=== PATIENT | female | born 1930 | race Caucasian/White ===

== ENCOUNTER 2017-03-10 12:07 | Emergency (ER) | payer MEDICARE, BC ==
[2017-03-10] MEDS ORDERED: MORPHINE SULFATE 5 MG/ML PFS IVP ONE (12:46)
[2017-03-10] MEDS ORDERED: PROMETHAZINE HCL 12.5 MG in 0.9 % SODIUM CHLORIDE 100ML 100 ML IVPB ONE (12:46)
[2017-03-10] MEDS ORDERED: NEOMYCIN/POLYMYXIN B SULF/HC 10ML BTL OT ONE (15:09)
--- NOTE | 2017-03-10 15:10 | Emergency Department Record ---
History of Present Illness - General Chief complaint: ENT Stated complaint: LEFT EAR PAIN Time Seen by Provider: 03/10/17 12:28 Source: Patient Mode of Arrival: Ambulatory Limitations: No limitations - History of Present Illness Initial comments: pt was attempting to get wax out of ear w q tip and developed sharp stabbing lancing pains in l ear area. complaint: Ear pain Onset/Timin -: Days(s) Severity: Severe Quality: Stabbing Consistency: Intermittent Improves with: None Context- Ear: Other - Related Data Home Medications Medication Instructions Recorded Confirmed Last Taken Allopurinol [Zyloprim] 100 mg PO DAILY 03/10/17 03/10/17 03/09/17 Omeprazole [Prilosec] 20 mg PO DAILY 03/10/17 03/10/17 03/09/17 Previous Rx's Medication Instructions Recorded Hydrocodone/Acetaminophen [Lovell 0.5 - 1 tab PO TID PRN #10 tab 03/10/17 5mg/325mg] Allergies Allergy/AdvReac Type Severity Reaction Status Date / Time No Known Drug Allergies Allergy Verified 06/09/15 23:40 Travel Screening - Travel/Exposure Within Last 30 Days Have you traveled within the last 30 days?: No - Travel/Exposure Within Last Year Have you traveled outside the [place] in the last year?: No - Additonal Travel Details Have you been exposed to anyone with a communicable illness?: No Past Medical History - SOCIAL HISTORY Smoking Status: Former smoker Alcohol Use: Rare Drug Use: None - RESPIRATORY Hx Respiratory Disorders: No - CARDIOVASCULAR Hx Cardio Disorders: Yes Hx CHF: Yes Hx Edema: Yes Hx Heart Attack: No Hx Hypertension: Yes Hx Irregular Heartbeat: Yes Hx Palpitations: Yes Comment:: high cholesterol - NEURO Hx Neuro Disorders: Yes Hx Dizziness: Yes (At night) - GI Hx GI Disorders: Yes Hx Diverticulitis: Yes Hx Hiatal Hernia: Yes Comment:: No problems with indigestion. - Hx Genitourinary Disorders: Yes - ENDOCRINE Hx Endocrine Disorders: No - MUSCULOSKELETAL Hx Musculoskeletal Disorders: Yes Hx Arthritis: Yes Hx Osteoporosis: Yes - PSYCH Hx Psych Problems: No - HEMATOLOGY/ONCOLOGY Hx Hematology/Oncology Disorders: Yes Hx Cancer: Yes (benign lumpectomy) Hx Chemotherapy: No Hx Radiation Therapy: No Hx Blood Transfusions: Yes Family Medical History Any Significant Family History?: No Hx Heart Disease: Father, Brother/Sister *Heart Comment: hx of [place]'s Course Vital Signs 03/10/17 03/10/17 12:19 13:47 Temperature 97.8 F Pulse Rate 72 Pulse Rate [ 72 Pulse Ox Probe] Respiratory 16 16 Rate Blood Pressure 170/94 Blood Pressure 167/93 [Left Arm] Pulse Ox 95 95 - Reevaluation(s) Reevaluation #1: 03/10/17 15:15 pain is better with norco. ct showed possible perf tm. canal occluded w cerumen and exquisitely tender. pt unable to tolerate complete removal but partially removed. Disposition Disposition: Discharge Clinical Impression: Trigeminal neuralgia of left side of face Tympanic membrane perforation Qualifiers: Laterality: left Qualified Code(s): H72.92 - Unspecified perforation of tympanic membrane, left ear Disposition: Home, Self-Care Condition: (1) Good Instructions: Ruptured Eardrum (ED), Trigeminal Neuralgia (ED) Additional Instructions: follow up with family doctor this week. cortisporin drops 1 drop in left ear 4 times a day. you might need additional meds from family doctor if pain continues. return sooner if worse. Prescriptions: Hydrocodone/Acetaminophen [Lovell 5mg/325mg] 0.5 - 1 tab PO TID PRN #10 tab PRN Reason: Pain - General Forms: Patient Portal Access Quality - Quality Measures Quality Measures: N/A - Blood Pressure Screening Does Patient Have Any of the Following: No Blood Pressure Classification: Hypertensive Reading Systolic Measurement: 170 Diastolic Measurement: 94 Screening for High Blood Pressure: < First Hypertensive BP, F/U Documented > [ G8950] First Hypertensive Follow-up Interventions: Follow-up with rescreen GT 1 day and LT 4 weeks.
--- NOTE | 2017-03-11 09:16 | CT SCAN REPORT ---
EXAM: CT SCAN OF THE HEAD HISTORY: PATIENT HAS LEFT EAR PAIN AND POSSIBLE PAIN POST INSERTING Q-TIP TOO FAR. TECHNIQUE: Serial axial CT scan of the head was performed at 2.5 mm intervals from the base of the skull to the apex without the use of intravenous contrast. Sagittal and coronal reconstructions are provided. No comparison CT's are available. FINDINGS: Moderate to increased generalized parenchymal volume loss is noted. Moderate periventricular and subcortical white matter chronic small vessel ischemic changes are identified. There is no CT evidence of intra or extraaxial fluid collection to suggest bleeding. There is no mass or mass effect. Bone windows demonstrate no CT evidence of a fracture or dislocation of the skull. IMPRESSION: GENERALIZED PARENCHYMAL VOLUME LOSS AND CHRONIC SMALL VESSEL ISCHEMIC CHANGES ARE IDENTIFIED WITHOUT CT EVIDENCE OF AN ACUTE INTRACRANIAL PROCESS. JOB NUMBER: [id number] [facility]
--- NOTE | 2017-03-11 09:32 | CT SCAN REPORT ---
EXAM: CT SCAN OF THE TEMPORAL BONES HISTORY: PATIENT HAS PAIN IN THE LEFT EAR FROM INSERTING Q-TIP TOO FAR. TECHNIQUE: Serial axial CT scan of the temporal bones was performed at 0.62 mm intervals from the base of the skull to the level of the third ventricle without the use of intravenous contrast. Sagittal and coronal reconstructions are provided. No comparison CT's are available. FINDINGS: Bone windows demonstrate no CT evidence of a fracture or dislocation of the visualized osseous structures of the base of the skull or temporal bones. The right external auditory canal appears partly occluded with soft tissue which is likely the result of cerumen. The right tympanic membrane appears unremarkable. The right middle ear is unremarkable. Ossicular chain on the right is unremarkable. The right mastoid air cells are well pneumatized and well aerated. The right cochlea, semicircular canals and internal auditory canal are unremarkable. The left mastoid air cells are well pneumatized and well aerated. The left cochlea, internal auditory canals and semicircular canals are unremarkable. The left ossicular chain is unremarkable. No significant fluid is noted within the left middle ear cavity. There is an irregular contour to the left tympanic membrane. The perforation cannot be excluded. No radiopaque foreign bodies are identified. The left external auditory canal appears unremarkable. Of note is that the patient has small pockets of air within the right pterygomaxillary soft tissue as well as in the region of the right cavernous sinus. The etiology is uncertain. There is subcutaneous soft tissue also identified adjacent to the right lateral periorbital musculature. Clinical correlation for abrasions are recommended. The visualized globe and orbits are unremarkable. Moderate nasal septal deviation to the left is noted. There is a randee bullosa of the bilateral middle turbinates, right greater than left. Otherwise the visualized paranasal sinuses demonstrate normal pneumatization. IMPRESSION: 1. NO CT EVIDENCE OF ACUTE FRACTURE OR DISLOCATION OF THE VISUALIZED TEMPORAL BONES OR FACIAL BONES. 2. SOFT TISSUE DENSITY WITHIN THE RIGHT EXTERNAL AUDITORY CANAL IS LIKELY RELATED TO CERUMEN. 3. LEFT TYMPANIC MEMBRANE DEMONSTRATES IRREGULAR CONTOUR. A PERFORATION CANNOT BE EXCLUDED. DIRECT VISUALIZATION IS SUGGESTED FOR FURTHER EVALUATION. NO OBVIOUS FLUID WITHIN THE LEFT MIDDLE EAR OR RADIOPAQUE FOREIGN BODIES ARE IDENTIFIED. 4. SMALL POCKETS OF AIR ARE IDENTIFIED WITHIN THE SOFT TISSUE OF THE RIGHT PTERYGOMAXILLARY REGION. THE ETIOLOGY IS UNCERTAIN. CLINICAL CORRELATION IS RECOMMENDED. JOB NUMBER: [id number] [facility]
--- NOTE | 2017-03-12 16:07 | Emergency Department Record ---
History of Present Illness - General Chief complaint: ENT Stated complaint: LEFT EAR PAIN Time Seen by Provider: 03/10/17 12:28 Source: Patient Mode of Arrival: Ambulatory Limitations: No limitations - History of Present Illness MD complaint: Ear pain Onset/Timin -: Days(s) Severity: Severe Quality: Stabbing Consistency: Intermittent Improves with: None Context- Ear: Other - Related Data Home Medications Medication Instructions Recorded Confirmed Last Taken Allopurinol [Zyloprim] 100 mg PO DAILY 03/10/17 03/10/17 03/09/17 Omeprazole [Prilosec] 20 mg PO DAILY 03/10/17 03/10/17 03/09/17 Previous Rx's Medication Instructions Recorded Hydrocodone/Acetaminophen [[place] 0.5 - 1 tab PO TID PRN #10 tab 03/10/17 5mg/325mg] Allergies Allergy/AdvReac Type Severity Reaction Status Date / Time No Known Drug Allergies Allergy Verified 06/09/15 23:40 Travel Screening - Travel/Exposure Within Last 30 Days Have you traveled within the last 30 days?: No - Travel/Exposure Within Last Year Have you traveled outside the [place] in the last year?: No - Additonal Travel Details Have you been exposed to anyone with a communicable illness?: No Past Medical History - SOCIAL HISTORY Smoking Status: Former smoker Alcohol Use: Rare Drug Use: None - RESPIRATORY Hx Respiratory Disorders: No - CARDIOVASCULAR Hx Cardio Disorders: Yes Hx CHF: Yes Hx Edema: Yes Hx Heart Attack: No Hx Hypertension: Yes Hx Irregular Heartbeat: Yes Hx Palpitations: Yes Comment:: high cholesterol - NEURO Hx Neuro Disorders: Yes Hx Dizziness: Yes (At night) - GI Hx GI Disorders: Yes Hx Diverticulitis: Yes Hx Hiatal Hernia: Yes Comment:: No problems with indigestion. - Hx Genitourinary Disorders: Yes - ENDOCRINE Hx Endocrine Disorders: No - MUSCULOSKELETAL Hx Musculoskeletal Disorders: Yes Hx Arthritis: Yes Hx Osteoporosis: Yes - PSYCH Hx Psych Problems: No - HEMATOLOGY/ONCOLOGY Hx Hematology/Oncology Disorders: Yes Hx Cancer: Yes (benign lumpectomy) Hx Chemotherapy: No Hx Radiation Therapy: No Hx Blood Transfusions: Yes Family Medical History Any Significant Family History?: No Hx Heart Disease: Father, Brother/Sister *Heart Comment: hx of [place]'s Physical Exam - General General Appearance: Alert, Oriented x3, Cooperative, Mild distress Limitations: No limitations - Head Head exam: Normal inspection Head exam detail: Other (tenderness preauricular) - Eye Eye exam: Normal appearance, PERRL, EOMI Pupils: Normal accommodation - ENT ENT exam: Normal exam, Mucous membranes moist, Normal external ear exam, Normal orophraynx, Other (cerumen impacted. partially removed, tm perf. canal is exquisitely tender) Ear exam: Normal external inspection. negative: External canal tenderness Nasal Exam: Normal inspection. negative: Discharge, Sinus tenderness Mouth exam: Normal external inspection, Tongue normal Teeth exam: Normal inspection. negative: Dental caries Throat exam: Normal inspection. negative: Tonsillar erythema, Tonsillar exudate - Neck Neck exam: Normal inspection, Full ROM. negative: Tenderness - Respiratory Respiratory exam: Normal lung sounds bilaterally. negative: Respiratory distress - Cardiovascular Cardiovascular Exam: Regular rate, Normal rhythm, Normal heart sounds - GI/Abdominal GI/Abdominal exam: Soft, Normal bowel sounds. negative: Tenderness - Rectal Rectal exam: Deferred - exam: Deferred - Extremities Extremities exam: Normal inspection, Full ROM, Normal capillary refill. negative: Tenderness - Back Back exam: Reports: Normal inspection, Full ROM. Denies: Muscle spasm, Rash noted, Tenderness - Neurological Neurological exam: Alert, CN II-XII intact, Normal gait, Oriented X3 - Psychiatric Psychiatric exam: Normal affect, Normal mood - Skin Skin exam: Dry, Intact, Normal color, Warm Course Vital Signs 03/10/17 03/10/17 03/10/17 12:19 13:47 15:43 Temperature 97.8 F Pulse Rate 72 66 Pulse Rate [ 72 Pulse Ox Probe] Respiratory 16 16 18 Rate Blood Pressure 170/94 174/88 Blood Pressure 167/93 [Left Arm] Pulse Ox 95 95 97 Disposition Clinical Impression: Trigeminal neuralgia of left side of face Tympanic membrane perforation Qualifiers: Laterality: left Qualified Code(s): H72.92 - Unspecified perforation of tympanic membrane, left ear Disposition: Home, Self-Care Condition: (1) Good Instructions: Ruptured Eardrum (ED), Trigeminal Neuralgia (ED) Additional Instructions: follow up with family doctor this week. cortisporin drops 1 drop in left ear 4 times a day. you might need additional meds from family doctor if pain continues. return sooner if worse. Prescriptions: Hydrocodone/Acetaminophen [Hilmar 5mg/325mg] 0.5 - 1 tab PO TID PRN #10 tab PRN Reason: Pain - General Forms: Patient Portal Access Quality - Quality Measures Quality Measures: N/A - Blood Pressure Screening Does Patient Have Any of the Following: No Blood Pressure Classification: Pre-Hypertensive BP Reading Systolic Measurement: 174 Diastolic Measurement: 88 Screening for High Blood Pressure: < Pre-Hypertensive BP, F/U Documented > [ G8950] Pre-Hypertensive Follow-up Interventions: Referral to alternative/primary care provider.
== END 2017-03-10 15:45 | disposition home or self-care (01) ==
LOC: ER 12:07
DX: S09.22XA Traumatic rupture of left ear drum, initial encounter (principal); G50.0 Trigeminal neuralgia; H61.22 Impacted cerumen, left ear; W22.8XXA Striking against or struck by other objects, initial encounter; Y93.E8 Activity, other personal hygiene; I10 Essential (primary) hypertension; I50.9 Heart failure, unspecified; I25.2 Old myocardial infarction
CPT/HCPCS: 70450; 70480; 96365; 96375; 99284; J2550

== ENCOUNTER 2017-05-02 10:30 | Emergency (ER) | payer MEDICARE, BC ==
[2017-05-02] MEDS ORDERED: SODIUM CHLORIDE 0.9% 500 ML IV ONE (10:34)
[2017-05-02] MEDS ORDERED: MECLIZINE 25 MG TABLET PO ONE (10:34)
--- NOTE | 2017-05-02 10:39 | Emergency Department Record ---
History of Present Illness - General Chief Complaint: Dizziness Stated Complaint: DIZZINESS Time Seen by Provider: 05/02/17 10:33 Source: Patient, EMS Mode of Arrival: Stretcher Limitations: Other (Memory) - History of Present Illness Initial Comments: 86 yo female presents by EMS for dizziness. She states this started this morning when she awoke. She denies any recent falls or headache. No vomiting. She states the room seems to spin with head movements. She states she has had similar symptoms in the past. She does live alone. She seems to have some memory issues with recalling some recent and prior medical information. PCP is Dr Middleton in [place]. She has a daughter who is on her way to the ED to be with her mother. Per EMS she was found in a chair and stood to get on the EMS cot without difficulty. MD Complaint: Dizziness -: Hour(s) Timing: Awoke with symptoms Description: "Room spinning", Sense of movement History of Same: Yes History of Trauma: No Severity: Moderate Improves With: Remaining still Worsens With: Movement Associated Symptoms: Denies other symptoms - [place] Coma Scale Eye Response: (4) Open spontaneously Motor Response: (6) Obeys commands Verbal Response: (5) Oriented [place] Total: 15 - Related Data Previous Rx's Medication Instructions Recorded Meclizine HCl [Antivert] 25 mg PO Q8H #20 tablet 05/02/17 Sulfamethoxazole/Trimethoprim 1 each PO BID #14 tablet 05/02/17 [Bactrim Ds Tablet] Allergies Allergy/AdvReac Type Severity Reaction Status Date / Time No Known Drug Allergies Allergy Verified 05/02/17 10:40 Review of Systems Constitutional: Denies: Chills, Fever, Malaise, Weakness Eyes: Denies: Eye discharge, Eye pain, Photophobia, Vision change ENT: Denies: Congestion, Throat pain Respiratory: Denies: Cough, Dyspnea, Hemoptysis, Stridor, Wheezes Cardiovascular: Denies: Chest pain, Palpitations, Syncope Endocrine: Denies: Fatigue, Polydipsia, Polyuria Gastrointestinal: Denies: Abdominal pain, Diarrhea, Nausea, Vomiting Genitourinary: Denies: Dysuria, Urgency Musculoskeletal: Denies: Arthralgia, Back pain, Joint swelling, Myalgia Skin: Denies: Bruising, Change in color, Rash Neurological: Reports: Vertigo. Denies: Headache Psychiatric: Denies: Anxiety Hematological/Lymphatic: Denies: Blood Clots, Easy bleeding, Easy bruising, Swollen glands Past Medical History - SOCIAL HISTORY Smoking Status: Former smoker Drug Use: None - RESPIRATORY Hx Respiratory Disorders: No - CARDIOVASCULAR Hx Cardio Disorders: Yes Hx CHF: Yes Hx Edema: Yes Hx Heart Attack: No Hx Hypertension: Yes Hx Irregular Heartbeat: Yes Hx Palpitations: Yes Comment:: high cholesterol - NEURO Hx Neuro Disorders: Yes Hx Dizziness: Yes (At night) - GI Hx GI Disorders: Yes Hx Diverticulitis: Yes Hx Hiatal Hernia: Yes Comment:: No problems with indigestion. - Hx Genitourinary Disorders: Yes - ENDOCRINE Hx Endocrine Disorders: No - MUSCULOSKELETAL Hx Musculoskeletal Disorders: Yes Hx Arthritis: Yes Hx Osteoporosis: Yes - PSYCH Hx Psych Problems: No - HEMATOLOGY/ONCOLOGY Hx Hematology/Oncology Disorders: Yes Hx Cancer: Yes (benign lumpectomy) Hx Chemotherapy: No Hx Radiation Therapy: No Hx Blood Transfusions: Yes Family Medical History Hx Heart Disease: Father, Brother/Sister *Heart Comment: hx of CT's Physical Exam - General General Appearance: Alert, Oriented x3, Cooperative, No acute distress Limitations: No limitations - Head Head exam: Atraumatic, Normocephalic, Normal inspection - Eye Eye exam: Normal appearance, PERRL, EOMI. negative: Conjunctival injection, Nystagmus, Periorbital swelling, Scleral icterus - ENT ENT exam: Normal exam, Mucous membranes moist Ear exam: Normal external inspection Nasal Exam: Normal inspection Mouth exam: Normal external inspection Teeth exam: Normal inspection Throat exam: Normal inspection - Neck Neck exam: Normal inspection, Full ROM. negative: Tenderness - Respiratory Respiratory exam: Normal lung sounds bilaterally. negative: Respiratory distress - Cardiovascular Cardiovascular Exam: Regular rate, Normal rhythm, Normal heart sounds Peripheral Pulses: 2+: Radial (R), Radial (L) - GI/Abdominal GI/Abdominal exam: Soft. negative: Tenderness - Rectal Rectal exam: Deferred - exam: Deferred - Extremities Extremities exam: Normal inspection, Full ROM, Normal capillary refill. negative: Tenderness - Back Back exam: Reports: Normal inspection, Full ROM. 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 negative: Altered , Motor sensory deficit - Psychiatric Psychiatric exam: Normal affect, Normal mood. negative: Agitated, Anxious - Skin Skin exam: Dry, Intact, Normal color, Warm Course - Reevaluation(s) Reevaluation #1: EKG Sinus with ventricular bigeminy rate of 84, intervals QT 557, RBBB, axis left, no old EKG on file in EMR. 05/02/17 11:01 05/02/17 11:24 No acute changes on the CBC,CMP,Magnesium, Old EKG found in paper file. 03/06/13 RBBB with PVC's The daughter is in the ED now She reports the patient has a long history of very frequent PVC's She reports the patient is at her baseline at this time and that she does have a history of dizziness in the past. The current monitor demonstrated NSR with frequent PVCs not currently bigemny. 05/02/17 11:57 The HCT was reviewed No acute changes from the prior. No acute hemorrhage or stroke. The UA was reviewed and is consistent with infection with LE, WBC and Bacteria. N is -. 05/02/17 12:03 I discussed the results with the patient and daughter I gave the option of OBV in the hospital vs DC home with the daughter. The daughter is very reliable and will take her home on antibiotics and antivert We discussed returning to the ED at anytime if there are concerns with improvement or the symptoms Medical Decision Making - Lab Data Result diagrams: 05/02/17 10:40 05/02/17 10:40 Disposition Disposition: Discharge Clinical Impression: Dizziness Urinary tract infection Qualifiers: Urinary tract infection type: acute cystitis Hematuria presence: without hematuria Qualified Code(s): N30.00 - Acute cystitis without hematuria Disposition: Home, Self-Care Condition: (1) Good Instructions: Urinary Tract Infection in Women (ED), Dizziness (ED) Additional Instructions: Call your doctor today for close follow up Return anytime for a re-evaluation of the symptoms or sooner if worse, new concerns Take the Antivert every 8 hours for dizziness and the Bactrim every 12 hours Prescriptions: Meclizine HCl [Antivert] 25 mg PO Q8H #20 tablet Sulfamethoxazole/Trimethoprim [Bactrim Ds Tablet] 1 each PO BID #14 tablet Forms: Patient Portal Access Time of Disposition: 12:06 Quality - Quality Measures Quality Measures: N/A - Blood Pressure Screening Does Patient Have Any of the Following: No Blood Pressure Classification: Pre-Hypertensive BP Reading Systolic Measurement: 161 Diastolic Measurement: 80 Screening for High Blood Pressure: < Pre-Hypertensive BP, F/U Documented > [ G8950] Pre-Hypertensive Follow-up Interventions: Referral to alternative/primary care provider.
[2017-05-02 10:48] LABS: HEMATOCRIT 42.6 % (35.0-47.0); HEMOGLOBIN 14.3 gm/dl (11.6-16.0); MEAN CELL VOLUME 93.8 fl (81-97); MEAN CORPUSCULAR HEMOGLOBIN 31.5 pg (27-33); MEAN CORPUSCULAR HGB CONC 33.6 g/dl (32-36); MEAN PLATELET VOLUME 9.5 fl (7.4-10.4); PLATELET COUNT 255 K/uL (130-400); RED BLOOD COUNT 4.54 M/uL (3.80-5.40); RED CELL DISTRIBUTION WIDTH 14.2 % (11.5-14.5); WHITE BLOOD COUNT W/O DIFF 9.7 K/uL (4.2-12.2)
[2017-05-02 10:55] LABS: PLATELET ESTIMATE NORMAL (NORMAL)
[2017-05-02 11:04] LABS: ALB/GLOB RATIO 1.4 (1.1-1.8); ALBUMIN 4.1 g/dL (4.0-5.0); ALKALINE PHOSPHATASE 70 U/L (35-104); ALT/SGPT 8 U/L (<33); AST/SGOT 16 U/L (10.0-35.0); BLOOD UREA NITROGEN 20 mg/dL (8-23); CREATININE 0.9 mg/dL (0.5-0.9); EST GLOMERULAR FILTRATION RATE > 60 mL/min; GLUCOSE,RANDOM 101 mg/dL (74-109); TOTAL PROTEIN 7.1 g/dL (6.6-8.7)
[2017-05-02] MEDS ORDERED: METOCLOPRAMIDE HCL 10 MG/2 ML VIAL IVP ONE (11:23)
[2017-05-02 11:43] LABS: URINE APPEARANCE CLEAR; URINE BILIRUBIN NEGATIVE (NEGATIVE); URINE BLOOD NEGATIVE (NEGATIVE); URINE COLOR YELLOW; URINE GLUCOSE (UA) NEGATIVE (NEGATIVE); URINE KETONE NEGATIVE (NEGATIVE); URINE LEUKOCYTE ESTERASE LARGE (NEGATIVE); URINE NITRITE NEGATIVE (NEGATIVE); URINE PROTEIN NEGATIVE (NEGATIVE); URINE UROBILINOGEN 0.2 E.U./dL (0.20 - 1.00)
[2017-05-02 11:50] LABS: URINE BACTERIA FEW; URINE RBC NONE SEEN (NONE SEEN)
[2017-05-02] MEDS ORDERED: TMP/SMZ 160MG/800MG TAB PO ONE (11:52)
--- NOTE | 2017-05-03 10:34 | CT SCAN REPORT ---
EXAM: CT OF THE HEAD WITHOUT CONTRAST HISTORY: ACUTE EPISODE OF VERTIGO/DIZZINESS. SIMILAR EPISODES INTERMITTENTLY FOR THE PAST SIX WEEKS. TECHNIQUE: Routine noncontrast CT examination of the head was obtained. Comparison: CT of the head without contrast dated 03/10/17. FINDINGS: Moderate dilatation of the subarachnoid spaces is redemonstrated. The ventricles are not grossly enlarged. Moderate periventricular and subcortical white matter lucencies are again noted in each cerebral hemisphere, the pattern of which is stable. These are nonspecific, but likely areas of chronic small vessel ischemia. No new area of abnormally increased or decreased attenuation is noted throughout the brain substance. No new abnormal extraaxial fluid collection is seen. The visualized paranasal sinuses and left mastoid air cells are clear. Opacification of a few inferior right mastoid air cells redemonstrated consistent with retained secretions or mild chronic inflammation. Post cataract surgery changes bilaterally. The orbits are otherwise unremarkable. IMPRESSION: 1. NO CT EVIDENCE OF ACUTE MAJOR VESSEL INFARCT, INTRACRANIAL HEMORRHAGE, NOR MASS WITHOUT SIGNIFICANT CHANGE IN APPEARANCE OF THE BRAIN SINCE 03/10/17. 2. GENERALIZED ATROPHY. MODERATE WHITE MATTER LUCENCIES SCATTERED IN EACH CEREBRAL HEMISPHERE. THESE ARE NONSPECIFIC, BUT LIKELY AREAS OF CHRONIC SMALL VESSEL ISCHEMIA. 3. OPACIFICATION OF SEVERAL INFERIOR RIGHT MASTOID AIR CELLS REDEMONSTRATED WITH ADJACENT SCLEROSIS CONSISTENT WITH RETAINED SECRETIONS OR MILD CHRONIC INFLAMMATION. JOB NUMBER: [id number] [facility]
== END 2017-05-02 12:26 | disposition home or self-care (01) ==
LOC: ER 10:30
DX: R42 Dizziness and giddiness (principal); N30.00 Acute cystitis without hematuria; I10 Essential (primary) hypertension; I25.2 Old myocardial infarction; I50.9 Heart failure, unspecified; Z87.891 Personal history of nicotine dependence
CPT/HCPCS: 99284 ×2; 96374; 96361; 83735; 80053; 81001; 85027; 70450; 93005; 93010; J3490; J2765

== ENCOUNTER 2017-05-03 14:39 | Observation (INO) | payer MEDICARE, BC ==
[2017-05-03] MEDS ORDERED: METOCLOPRAMIDE HCL 10 MG/2 ML VIAL IVP ONE (15:03)
--- NOTE | 2017-05-03 16:01 | Emergency Department Record ---
History of Present Illness - General Chief Complaint: Dizziness Stated Complaint: DIZZINESS Time Seen by Provider: 05/03/17 14:53 Source: Patient, Family, EMS Mode of Arrival: Ambulatory Limitations: No limitations - History of Present Illness Initial Comments: pt was here yesterday with vertigo and was told to come back if not better. she is not better and states she is having a hard time walking because she feels like she is going to fall. she had a neg head ct yesterday and was dxd with a uti. she has had problems w vertigo in the past. she was offered admission yesterday but refused. she was told she could come back if she changed her mind. she comes back today via ems MD Complaint: Dizziness, Difficulty walking Onset/Timin -: Days(s) Timing: Gradual onset Description: Difficulty walking History of Same: Yes History of Trauma: No Improves With: Nothing Worsens With: Nothing Associated Symptoms: Denies other symptoms - [place] Coma Scale Eye Response: (4) Open spontaneously Motor Response: (6) Obeys commands Verbal Response: (5) Oriented Vish Total: 15 - Symptoms of Stroke Symptoms of stroke: Unsteady When Walking, Vertigo - Related Data Previous Rx's Medication Instructions Recorded Meclizine HCl [Antivert] 25 mg PO Q8H #20 tablet 05/02/17 Sulfamethoxazole/Trimethoprim 1 each PO BID #14 tablet 05/02/17 [Bactrim Ds Tablet] Allergies Allergy/AdvReac Type Severity Reaction Status Date / Time No Known Drug Allergies Allergy Verified 05/02/17 10:40 Travel Screening - Travel/Exposure Within Last 30 Days Have you traveled within the last 30 days?: No Review of Systems Reviewed: No additional complaints except as noted below Constitutional: Reports: As per HPI. Denies: Chills, Fever, Malaise, Night sweats, Weakness, Weight change Eyes: Reports: As per HPI. Denies: Eye discharge, Eye pain, Photophobia, Vision change ENT: Reports: As per HPI. Denies: Congestion, Dental pain, Ear pain, Epistaxis , Hearing loss, Throat pain Respiratory: Reports: As per HPI. Denies: Cough, Dyspnea, Hemoptysis, Stridor, Wheezes Cardiovascular: Reports: As per HPI. Denies: Arrhythmia, Chest pain, Dyspnea on exertion, Edema, Murmurs, Orthopnea, Palpitations, Paroxysmal nocturnal dyspnea, Rheumatic Fever, Syncope Endocrine: Reports: As per HPI. Denies: Fatigue, Heat or cold intolerance, Polydipsia, Polyuria Gastrointestinal: Reports: As per HPI. Denies: Abdominal pain, Constipation, Diarrhea, Hematemesis, Hematochezia, Melena, Nausea, Vomiting Genitourinary: Reports: As per HPI. Denies: Abnormal menses, Discharge, Dyspareunia, Dysuria, Frequency, Hematuria, Incontinence, Retention, Urgency Musculoskeletal: Reports: As per HPI. Denies: Arthralgia, Back pain, Gout, Joint swelling, Myalgia, Neck pain Skin: Reports: As per HPI. Denies: Bruising, Change in color, Change in hair/ nails, Lesions, Pruritus, Rash Neurological: Reports: As per HPI. Denies: Abnormal gait, Confusion, Headache, Numbness, Paresthesias, Seizure, Tingling, Tremors, Vertigo, Weakness Psychiatric: Reports: As per HPI. Denies: Anxiety, Auditory hallucinations, Depression, Homicidal thoughts, Suicidal thoughts, Visual hallucinations Hematological/Lymphatic: Reports: As per HPI. Denies: Anemia, Blood Clots, Easy bleeding, Easy bruising, Swollen glands Past Medical History - SOCIAL HISTORY Smoking Status: Former smoker Alcohol Use: None Drug Use: None - RESPIRATORY Hx Respiratory Disorders: No - CARDIOVASCULAR Hx Cardio Disorders: Yes Hx CHF: Yes Hx Edema: Yes Hx Heart Attack: No Hx Hypertension: Yes Hx Irregular Heartbeat: Yes Hx Palpitations: Yes Comment:: high cholesterol - NEURO Hx Neuro Disorders: Yes Hx Dizziness: Yes (At night) - GI Hx GI Disorders: Yes Hx Diverticulitis: Yes Hx Hiatal Hernia: Yes Comment:: No problems with indigestion. - Hx Genitourinary Disorders: Yes - ENDOCRINE Hx Endocrine Disorders: No - MUSCULOSKELETAL Hx Musculoskeletal Disorders: Yes Hx Arthritis: Yes Hx Osteoporosis: Yes - PSYCH Hx Psych Problems: No - HEMATOLOGY/ONCOLOGY Hx Hematology/Oncology Disorders: Yes Hx Cancer: Yes (benign lumpectomy) Hx Chemotherapy: No Hx Radiation Therapy: No Hx Blood Transfusions: Yes Family Medical History Any Significant Family History?: Yes Hx Heart Disease: Father, Brother/Sister *Heart Comment: hx of VT's Physical Exam - General General Appearance: Alert, Oriented x3, Cooperative, Mild distress - Head Head exam: Normal inspection - Eye Eye exam: Normal appearance, PERRL, EOMI Pupils: Normal accommodation - ENT ENT exam: Normal exam, Mucous membranes moist, Normal external ear exam, Normal orophraynx, TM's normal bilaterally, Other (tms partially occluded with cerumen) Ear exam: Normal external inspection. negative: External canal tenderness Nasal Exam: Normal inspection. negative: Discharge, Sinus tenderness Mouth exam: Normal external inspection, Tongue normal Teeth exam: Normal inspection. negative: Dental caries Throat exam: Normal inspection. negative: Tonsillar erythema, Tonsillar exudate - Neck Neck exam: Normal inspection, Full ROM. negative: Tenderness - Respiratory Respiratory exam: Normal lung sounds bilaterally. negative: Respiratory distress - Cardiovascular Cardiovascular Exam: Regular rate, Normal rhythm, Normal heart sounds - GI/Abdominal GI/Abdominal exam: Soft, Normal bowel sounds. negative: Tenderness - Rectal Rectal exam: Deferred - exam: Deferred - Extremities Extremities exam: Normal inspection, Full ROM, Normal capillary refill. negative: Tenderness - Back Back exam: Reports: Normal inspection, Full ROM. Denies: Muscle spasm, Rash noted, Tenderness - Neurological Neurological exam: Alert, Normal gait, Oriented X3, Reflexes normal - Psychiatric Psychiatric exam: Normal affect, Normal mood - Skin Skin exam: Dry, Intact, Normal color, Warm Course Vital Signs 05/03/17 14:42 Temperature 97.8 F Pulse Rate 70 Respiratory 20 Rate Blood Pressure 160/78 Pulse Ox 94 L - Reevaluation(s) Reevaluation #1: 05/03/17 16:02 pt and daughter state they want admission Disposition Disposition: Admit Clinical Impression: Vertigo Disposition: Still a Patient at [facility] Decision to Admit: Admit from ER Decision to Admit Date: 05/03/17 Decision to Admit Time: 17:03 Forms: Patient Portal Access Quality - Quality Measures Quality Measures: N/A - Blood Pressure Screening Does Patient Have Any of the Following: No Blood Pressure Classification: Hypertensive Reading Systolic Measurement: 160 Diastolic Measurement: 78 Screening for High Blood Pressure: < First Hypertensive BP, F/U Documented > [ [id number]] First Hypertensive Follow-up Interventions: Follow-up with rescreen GT 1 day and LT 4 weeks.
[2017-05-03] MEDS ORDERED: MECLIZINE 25 MG TABLET PO ONE ×2 (17:06→20:30)
[2017-05-03] MEDS ORDERED: ACETAMINOPHEN 500 MG TABLET PO PRN (18:01)
[2017-05-03] MEDS ORDERED: MECLIZINE 25 MG TABLET PO PRN ×2 (18:01→20:31)
[2017-05-03] MEDS: TMP/SMZ 160MG/800MG TAB PO SCH (21:07)
[2017-05-04] MEDS ORDERED: PANTOPRAZOLE SODIUM 40 MG TABLET PO SCH (07:00)
[2017-05-04] MEDS ORDERED: CARBAMIDE PEROXIDE 15ML BTL OT ONE (07:36)
[2017-05-04] MEDS: TMP/SMZ 160MG/800MG TAB PO SCH (09:58)
[2017-05-04] MEDS ORDERED: SIMVASTATIN 20 MG TABLET PO SCH (10:00)
[2017-05-04] MEDS ORDERED: SERTRALINE HCL 50 MG TABLET PO SCH (10:00)
--- NOTE | 2017-05-04 12:11 | Discharge Note ---
VTE H&P Assessment - Risk for VTE Risk for VTE: No Risk Level: Very Low Risk Assessment Date: 05/04/17 Risk Assessment Time: 12:11 VTE Orders Placed or Will Be Placed: No VTE Reason for No Prophylaxis: Not Indicated Discharge Medications - Discharge Medications Prescriptions: Meclizine HCl [Antivert] 25 mg PO Q8H #20 tablet Home Medications: Ambulatory Orders Sertraline HCl 100 mg PO DAILY 06/09/15 [Last Taken 03/09/17] Simvastatin 40 mg PO DAILY 06/09/15 [Last Taken 03/09/17] Omeprazole [Prilosec] 40 mg PO DAILY 03/10/17 [Last Taken 03/09/17] Sulfamethoxazole/Trimethoprim [Bactrim Ds Tablet] 1 each PO BID #14 tablet 05/02 [Last Taken Unknown] Meclizine HCl [Antivert] 25 mg PO Q8H #20 tablet 05/04/17 [Last Taken Unknown] Discharge Note - Date Date of Discharge Note: 05/04/17 Disposition: Home, Self-Care Condition: (1) Good Instructions: Benign Paroxysmal Positional Vertigo (DC) Additional Instructions: follow up with DSr. Donahue in 5-7 days. Forms: Patient Portal Access Activity at Discharge: Increase Activity as Tolerated Diet at Discharge: Low Salt Diet
--- NOTE | 2017-05-05 12:51 | Discharge Summary ---
DATE OF DISCHARGE: 05/04/2017, 12:12 p.m. DISCHARGE DIAGNOSES: 1. Benign postural vertigo. 2. Cerumen impaction of both ears. 3. Urinary tract infection. ATTENDING PHYSICIAN: Deshaun Arizmendi D.O. REASON FOR HOSPITALIZATION: Two trips to the emergency department for vertigo, the 2nd trip the doctor felt it was necessary to keep her because she was having too much vertigo, for further evaluation and treatment with Antevert. She was evaluated initially by Dr. Hdz. CT of the head was negative. Labs were negative. She was initially evaluated by Dr. Lujan, and she felt uncomfortable sending her home. SIGNIFICANT FINDINGS FROM EXAMINATION: CT of the head negative. Labs were negative. She does show signs of urinary tract infection of the urine. Cultures are pending. She was started on Bactrim DS b.i.d. THERAPY PROVIDED: Antevert 25 mg every 8 hours. She is doing better. She also had her ears flushed out because she had cerumen impacted in both ears. There was concern it might be pressing on the eardrum, causing vertigo symptoms. The wax was flushed out with water after Debrox, and she said the spinning was worse while the flushing was happening, but I explained to her that happens with flushing water through the ears. She currently is doing well, and she is only having a small amount of vertigo when she moves her head from one to the other. I also explained to her it would be much worse after she sleeps for a while, and she is aware that it will come and go for at least a week to 6 weeks. I recommend she follow up with Dr. Donahue for further evaluation, and maybe if things do not get better with the medication, physical therapy to do maneuvers to try to help her benign postural vertigo to go away. HOSPITAL COURSE: Improving. She is Observation. CONDITION AT DISCHARGE: Improved. DISCHARGE INSTRUCTIONS: Follow up with Dr. Donahue in 5-7 days. Take the Antevert 25 mg every 8 hours p.r.n., Bactrim DS b.i.d., and return to the emergency department if much worse. CC: Dr. Donahue, in [facility]
--- NOTE | 2017-05-05 13:04 | History and Physical Report ---
DATE OF ADMISSION: 05/04/2017 CHIEF COMPLAINT: Vertigo. HISTORY OF THE CHIEF COMPLAINT: This 86-year-old female presented to the Emergency Department twice, initially seen by Dr. Hdz on 05/02/2017, diagnosed with benign postural vertigo. Patient states that the spinning started the morning of 05/02/2017. When I talked to her, she said she had a little bit ongoing for the last week. She denies falls or headaches. No vomiting. She states the room is spinning when she moves her head. She has had similar problems in the past. She lives alone. She has some memory issues recalling some recent medical information. Her primary care physician is Dr. Donahue in [place]. She has a daughter who lives near her. EMS was called and she was transported to the hospital. She was evaluated and discharged with Antivert 12.5 mg 3 times a day. She came back by ambulance the next day and saw Dr. Lujan. She was concerned the vertigo was more severe. She put her in the hospital for further observation and treatment. Actually, it looks like Dr. Hdz gave her [address] Lujan prescribed in the hospital 12.5 mg 3 times a day. CAT scan of the head in the Emergency Department was negative. LABORATORY: Unremarkable. No labs were drawn by Dr. Lujan, but Dr. Hdz did the labs. A CBC was 9700, hemoglobin was 14.3, potassium was 4.2, BUN was 20, creatinine was 0.9. Urine showing 10-15 wbc's, 3-6 epithelial cells, few bacteria. She was started on Bactrim DS b.i.d. PAST MEDICAL HISTORY: She has had congestive heart failure in the past, hypertension, irregular heartbeat. She is not able to tell me if it is atrial fibrillation. She has had vertigo in the past. Diverticulitis, hiatal hernia, arthritis, osteoarthritis, osteoporosis. PAST SURGICAL HISTORY: Hysterectomy in 1976, 3 lump removed of the left breast and 1 of the right breast in the 1949s, which were negative for cancer. Open- reduction internal-fixation of the right shoulder in 2012, and nose surgery. MEDICATIONS ON ADMISSION: Bactrim DS started 1 day ago for urinary tract infection, simvastatin 40 mg daily, sertraline 100 mg daily, omeprazole 40 mg daily, meclizine 25 mg every 8 hours (prescription given to her by Dr. Hdz). ALLERGIES: No known drug allergies. FAMILY PSYCHOSOCIAL HISTORY: She is a former cigarette smoker. No alcohol or drug use. Her father, brother, and sister had heart disease. History of MIs all older than 55. REVIEW OF SYSTEMS: HEENT: No upper respiratory infection symptoms, cough, cold , or congestion. Cardiovascular: She states she has an irregular heart rate, but no chest pain, palpitations, or arrhythmias. Respiratory: No cough, cold or congestion. Gastrointestinal: No nausea, vomiting, diarrhea, black stools, or bloody stools. Genitourinary: No dysuria, hematuria, frequency, or burning on urination. Musculoskeletal: No joint or bony abnormalities. Neurologic: No CVA, paralysis, or paresthesias. She has had benign postural vertigo in the past. MUSIC ARTIST: She has had lumps removed from her breast, but no cancer. She had a hysterectomy and no abnormal vaginal bleeding now. Endocrine: No diabetes or thyroid disease. Integument: No rash, ulcers, changes in moles, or yellow skin. PHYSICAL EXAMINATION: VITAL SIGNS: Height is 4'11". Weight is 135 pounds. Temperature was 97.9. Pulse was 61. Blood pressure 144/71. Respiratory rate 18. Pulse ox 96% on room air. HEENT: Pupils equal, round, and reactive to light and accommodation. Extraocular muscles intact. Throat is clear. Nose is clear. Tympanic membranes denton. NECK: Supple. No jugular venous distention. No hepatojugular reflux. No carotid bruits. Thyroid is smooth. There is nystagmus when she moves her head right or left. CARDIOVASCULAR: Irregular rate and rhythm with possibility of atrial fibrillation. Will get an EKG to confirm that. She is not able to tell me exactly what kind of arrhythmia she has. RESPIRATORY: Breath sounds equal bilaterally. ABDOMEN: Soft, nontender, no hepatosplenomegaly. No masses or tenderness. Bowel sounds active. No bruits. EXTREMITIES: No pitting edema. No cyanosis or clubbing. Full range of motion. Peripheral pulses good. BREASTS: Deferred. GYNECOLOGIC: Deferred. RECTAL: Deferred. NEUROLOGIC: Cranial nerves II-XII intact. No gross deficits. Sensation normal. Strength normal. Deep tendon reflexes equal bilaterally. Babinski is negative. MENTAL STATUS: Alert and oriented x3, except she is poor with her time. IMPRESSION: 1. Benign postural vertigo. 2. Urinary tract infection. 3. History of hypercholesterolemia. 4. History of GERD. 5. History of benign postural vertigo. 6. Cerumen in both ears, impacted. PLAN: Antivert 25 mg every 8 hours. Will put some Debrox in the ears and flush the ears out to see if that will improve her vertigo. ADDENDUM An EKG was done by Dr. Hdz on 05/02/2017. I reviewed the EKG. She is in normal sinus rhythm with PVCs, bigeminy at times. MTDD
== END 2017-05-04 13:28 | disposition home or self-care (01) ==
LOC: ER 14:39 → MEDSURG 17:28
PROVIDERS: ADMIT Emergency Medicine; ATTEND Emergency Medicine
DX: H81.10 Benign paroxysmal vertigo, unspecified ear (principal); N39.0 Urinary tract infection, site not specified; E78.00 Pure hypercholesterolemia, unspecified; K21.9 Gastro-esophageal reflux disease without esophagitis; H61.23 Impacted cerumen, bilateral; I50.9 Heart failure, unspecified; I10 Essential (primary) hypertension; Z87.891 Personal history of nicotine dependence; M81.0 Age-related osteoporosis without current pathological fracture; I48.91 Unspecified atrial fibrillation
CPT/HCPCS: 99285 ×2; 96374; G0378 ×2; J3490 ×2; 99220; J2765

== ENCOUNTER 2018-01-09 07:26 | Emergency (ER) | payer MEDICARE, BC ==
[2018-01-09] MEDS ORDERED: MECLIZINE 25 MG TABLET PO ONE (07:36)
--- NOTE | 2018-01-09 07:42 | Emergency Department Record ---
History of Present Illness - General Chief Complaint: Fall Injury Stated Complaint: FALL Time Seen by Provider: 01/09/18 07:34 Source: Patient, Family, EMS Mode of Arrival: EMS Limitations: No limitations - History of Present Illness Initial Comments: 87 yo female presents after waking up dizzy and she reports a fall. She states she woke up shortly after 6am. She was making her way to the bathroom and fell due to feeling dizziness. She has a history in the past of similar episodes with vertigo. She was admitted in 2017. No blood thinners. She hit her head on the toilet and notes low mid line pain. No lacerations or abrasions. No other acute changes in her health. Her PCP is Dr Donahue. She presents at her baseline mental status. She declined any pain medication. The pain is very mild. She states if she sleeps on the wrong side she gets dizzy or if her ears get full of wax. No weakness, vision changes, speech changes. She has mild chronic memory changes that are unchanged. MD Complaint: Fall Onset/Timin -: Hour(s) Fall From: Standing When Fall Occurred: Just prior to arrival Fall Witnessed: No Place Fall Occurred: Home Loss of Consciousness: None Prolonged Down Time?: No Symptoms Prior to Fall: Dizziness Location: Head, Buttocks Severity: Mild Quality: Aching Context: Other Associated Symptoms: Confusion - [place] Coma Scale Eye Response: (4) Open spontaneously Motor Response: (6) Obeys commands Verbal Response: (5) Oriented [place] Total: 15 - Related Data Home Medications Medication Instructions Recorded Confirmed Last Taken Allopurinol 100 mg PO DAILY 01/09/18 01/09/18 Unknown Hydrochlorothiazide [Hctz] 25 mg PO DAILY 01/09/18 01/09/18 Unknown Allergies Allergy/AdvReac Type Severity Reaction Status Date / Time No Known Drug Allergies Allergy Verified 05/02/17 10:40 Travel Screening - Travel/Exposure Within Last 30 Days Have you traveled within the last 30 days?: No Review of Systems Constitutional: Denies: Chills, Fever, Malaise, Weakness Eyes: Denies: Eye discharge, Eye pain, Photophobia, Vision change ENT: Denies: Congestion, Throat pain Respiratory: Denies: Cough, Dyspnea Cardiovascular: Denies: Chest pain, Syncope Endocrine: Denies: Fatigue Gastrointestinal: Denies: Abdominal pain, Diarrhea, Nausea, Vomiting Genitourinary: Denies: Dysuria, Urgency Musculoskeletal: Reports: Back pain. Denies: Arthralgia, Joint swelling, Myalgia, Neck pain Skin: Denies: Bruising, Change in color, Rash Neurological: Reports: Vertigo. Denies: Abnormal gait, Confusion, Headache, Paresthesias, Tingling, Tremors Psychiatric: Denies: Anxiety Hematological/Lymphatic: Denies: Easy bleeding, Easy bruising, Swollen glands Past Medical History - SOCIAL HISTORY Smoking Status: Former smoker Alcohol Use: None Drug Use: None - RESPIRATORY Hx Respiratory Disorders: No - CARDIOVASCULAR Hx Cardio Disorders: Yes Hx CHF: Yes Hx Edema: Yes Hx Heart Attack: No Hx Hypertension: Yes Hx Irregular Heartbeat: Yes Hx Palpitations: Yes Comment:: high cholesterol - NEURO Hx Neuro Disorders: Yes Hx Dizziness: Yes (At night) - GI Hx GI Disorders: Yes Hx Diverticulitis: Yes Hx Hiatal Hernia: Yes Comment:: No problems with indigestion. - Hx Genitourinary Disorders: Yes - ENDOCRINE Hx Endocrine Disorders: No - MUSCULOSKELETAL Hx Musculoskeletal Disorders: Yes Hx Arthritis: Yes Hx Osteoporosis: Yes - PSYCH Hx Psych Problems: No - HEMATOLOGY/ONCOLOGY Hx Hematology/Oncology Disorders: Yes Hx Cancer: Yes (benign lumpectomy) Hx Chemotherapy: No Hx Radiation Therapy: No Hx Blood Transfusions: Yes Family Medical History Any Significant Family History?: Yes Hx Heart Disease: Father, Brother/Sister *Heart Comment: hx of DE's Physical Exam - General General Appearance: Alert, Oriented x3, Cooperative, No acute distress Limitations: No limitations - Head Head exam: Atraumatic, Normocephalic, Normal inspection, Other (No swelling or abrasions at this time in the area she states she hit with her head) Head exam detail: negative: Abrasion, Contusion, Hematoma - Eye Eye exam: Normal appearance, PERRL, EOMI, Nystagmus (rapid to the R). negative : Conjunctival injection, Periorbital swelling, Scleral icterus - ENT ENT exam: Normal exam. negative: TM's normal bilaterally (Right TM copious cerumen) Ear exam: Normal external inspection Nasal Exam: Normal inspection Mouth exam: Normal external inspection Teeth exam: Normal inspection - Neck Neck exam: Normal inspection, Full ROM. negative: Tenderness - Respiratory Respiratory exam: Normal lung sounds bilaterally. negative: Respiratory distress - Cardiovascular Cardiovascular Exam: Regular rate, Normal rhythm, Normal heart sounds Peripheral Pulses: 2+: Radial (R), Radial (L) - GI/Abdominal GI/Abdominal exam: Soft. negative: Tenderness - Rectal Rectal exam: Deferred - exam: Deferred - Extremities Extremities exam: Normal inspection, Full ROM, Normal capillary refill. negative: Calf tenderness, Joint swelling, Pedal edema, Tenderness - Back Back exam: Reports: Normal inspection, Full ROM, Tenderness, Vertebral tenderness. Denies: CVA tenderness (R), CVA tenderness (L), Muscle spasm, Rash noted Image of Body Front/Back: 1 - tenderness on palpaiton - Neurological Neurological exam: Alert, CN II-XII intact, Oriented X3, Reflexes normal. negative: Altered, Motor sensory deficit - Psychiatric Psychiatric exam: Normal affect, Normal mood. negative: Agitated, Anxious - Skin Skin exam: Dry, Intact, Normal color, Warm Course Vital Signs 01/09/18 07:29 Temperature 97.6 F Pulse Rate 65 Respiratory 18 Rate Blood Pressure 169/87 Pulse Ox 99 - Reevaluation(s) Reevaluation #1: 01/09/18 07:55 The CBC was reviewed. No acute changes. 01/09/18 08:24 EKG #1: 0818 Rate: 51 Rhythm: sinus bradycardia Hannah: left Intervals: Qtc 484,RBBB ST segments: No acute changes Prior: Reviewed. similar RBBB but she was in bigeminy on the prior 05/02/17 01/09/18 08:44 No acute changes on the CMP The HCT was reviewed and was read as no acute abnormality by the radiologist. The Lumbar XR was read as chronic compression fracture at L3 with degenerative changes. 01/09/18 09:04 The patient states she is not dizzy at this time The right ear cerum was irrigated 01/09/18 09:08 The results were reviewed with the patient and her daughter. The daughter states she is aware of the RBBB and the prior compression fracture in the lumbar spine. 01/09/18 09:25 The patient ambulated with her walking without dizziness. Medical Decision Making - Lab Data Result diagrams: 01/09/18 07:45 01/09/18 07:45 Disposition Disposition: Discharge Clinical Impression: Vertigo Cerumen impaction Qualifiers: Laterality: right Qualified Code(s): H61.21 - Impacted cerumen, right ear Disposition: Home, Self-Care Condition: (1) Good Instructions: Fall Prevention for Older Adults (ED) Additional Instructions: Call your doctor today to schedule a recheck of this ED visit Review the ED record and any tests done in the ED with your doctor Return to the ED if worse or any new concerns. Forms: Patient Portal Access Time of Disposition: 08:56 Quality - Quality Measures Quality Measures: N/A - Blood Pressure Screening Does Patient Have Any of the Following: Active Dx of HTN Blood Pressure Classification: Hypertensive Reading Systolic Measurement: 180 Diastolic Measurement: 77 Screening for High Blood Pressure: Patient Exclusion, Hx of HTN [G9744]
[2018-01-09 07:53] LABS: BASO % 0.4 % (0-6); EOS % 2.3 % (0-6); GRAN % 69.4 % (47-80); HEMATOCRIT 43.7 % (35.0-47.0); HEMOGLOBIN 14.3 gm/dl (11.6-16.0); MEAN CELL VOLUME 96.7 fl (81-97); MEAN CORPUSCULAR HEMOGLOBIN 31.6 pg (27-33); MEAN CORPUSCULAR HGB CONC 32.7 g/dl (32-36); MEAN PLATELET VOLUME 9.3 fl (7.4-10.4); MONO % 5.9 % (0-9); PLATELET COUNT 229 K/uL (130-400); RED BLOOD COUNT 4.52 M/uL (3.80-5.40); RED CELL DISTRIBUTION WIDTH 13.6 % (11.5-14.5); WHITE BLOOD COUNT W/O DIFF 7.2 K/uL (4.2-12.2)
[2018-01-09 08:05] LABS: INR 0.9; PARTIAL THROMBOPLASTIN TIME 28.8 SECONDS (24.5-39.1)
[2018-01-09 08:06] LABS: BILIRUBIN,TOTAL 0.4 mg/dL (0.2-1.0)
[2018-01-09 08:07] LABS: TOTAL PROTEIN 6.8 g/dL (6.6-8.7)
[2018-01-09 08:12] LABS: ALB/GLOB RATIO 1.5 (1.1-1.8); ALBUMIN 4.1 g/dL (4.0-5.0)
--- NOTE | 2018-01-09 18:26 | CT SCAN REPORT ---
EXAM: CT SCAN HEAD WO CONTRAST HISTORY: INJURY. TECHNIQUE: Sequential axial images were obtained from the foramen magnum to the vertex without contrast administration. FINDINGS: The brain volume is normal. There is periventricular small vessel ischemic change. No large territorial infarct, hemorrhage, mass effect, or midline shift. No extra-axial fluid collection. The orbits, paranasal sinuses, and mastoid air cells are normal. IMPRESSION: PERIVENTRICULAR SMALL VESSEL ISCHEMIC CHANGE. NO ACUTE INTRACRANIAL ABNORMALITY BY CT EXAMINATION. JOB NUMBER: [id number] MTDD
--- NOTE | 2018-01-09 18:32 | RADIOLOGY REPORT ---
EXAM: LUMBAR SPINE / AP LAT HISTORY: BACK PAIN. TECHNIQUE: AP and lateral view of the lumbar spine were performed. FINDINGS: There is a vertebral compression fracture deformity of the L3 vertebral body. Minimal bulging of the posterior cortex. This is age- indeterminate. There is underlying osteopenia. There is degenerative change at the L3-4 through L5-S1 levels. There is atheromatous change of the abdominal aorta. IMPRESSION: 1. OSTEOPENIA. 2. VERTEBRAL COMPRESSION FRACTURE DEFORMITY OF THE L3 VERTEBRAL BODY, WHICH IS AGE-INDETERMINATE. 3. DEGENERATIVE CHANGES L3-4 THROUGH L5-S1 LEVELS. JOB NUMBER: [id number] [facility]
== END 2018-01-09 09:40 | disposition home or self-care (01) ==
LOC: ER 07:26
DX: S09.90XA Unspecified injury of head, initial encounter (principal); R42 Dizziness and giddiness; H61.21 Impacted cerumen, right ear; M54.5 Low back pain; I50.9 Heart failure, unspecified; I10 Essential (primary) hypertension; Z87.891 Personal history of nicotine dependence; W18.09XA Striking against other object with subsequent fall, initial encounter; Y92.002 Bathroom of unspecified non-institutional (private) residence as the place of occurrence of the external cause
CPT/HCPCS: 70450; 72100; 80053; 85025; 85610; 85730; 93005; 93010; 99284

== ENCOUNTER 2019-01-17 09:02 | Emergency (ER) | payer MEDICARE, BC ==
--- NOTE | 2019-01-17 09:20 | Emergency Department Record ---
History of Present Illness - General Chief Complaint: Back Pain/Injury Stated Complaint: UNABLE TO WALK Time Seen by Provider: 01/17/19 09:19 Source: Patient, EMS, RN notes reviewed - History of Present Illness Initial Comments: patient unable to walk and she injuried her back 2 weeks ago lifting tomato p lants and seen at [facility] 01/10/2019 and lumbar xray which revealed L2 compression fracture 25 % lose of height and chronic L3 compression fracture and she was not getting around walking at home and in bed and not eating and her daughter called EMS and she was transported to ED. Daughter states they are setting up a bed in [facility] in [facility] and labs have been ordered and she is going to have a TB blood test. Primary Dr Donahue. Daughter said she could not walk today but was walking a few days ago. -: Unknown Similar Symptoms Previously: No Place: Home Radiation: None Quality: Aching, Sharp Consistency: Constant Improves With: Immobilization Worsens With: Movement Context: Other Associated Symptoms: Denies other symptoms - Related Data Home Medications Medication Instructions Recorded Confirmed Last Taken Vits A,C,E/Lutein/Minerals 1 each PO DAILY 01/17/19 01/17/19 Unknown [Ocuvite with Lutein Tablet] Allergies Allergy/AdvReac Type Severity Reaction Status Date / Time lidocaine patch AdvReac hives Uncoded 01/09/19 15:20 Travel Screening - Travel/Exposure Within Last 30 Days Have you traveled within the last 30 days?: No Review of Systems Reviewed: No additional complaints except as noted below Constitutional: Reports: As per HPI. Denies: Chills, Fever, Malaise, Night sweats, Weakness, Weight change Eyes: Reports: As per HPI. Denies: Eye discharge, Eye pain, Photophobia, Vision change ENT: Reports: As per HPI. Denies: Congestion, Dental pain, Ear pain, Epistaxis, Hearing loss, Throat pain Respiratory: Reports: As per HPI. Denies: Cough, Dyspnea, Hemoptysis, Stridor, Wheezes Cardiovascular: Reports: As per HPI. Denies: Arrhythmia, Chest pain, Dyspnea on exertion, Edema, Murmurs, Orthopnea, Palpitations, Paroxysmal nocturnal dyspnea, Rheumatic Fever, Syncope Endocrine: Reports: As per HPI. Denies: Fatigue, Heat or cold intolerance, Polydipsia, Polyuria Gastrointestinal: Reports: As per HPI. Denies: Abdominal pain, Constipation, Diarrhea, Hematemesis, Hematochezia, Melena, Nausea, Vomiting Genitourinary: Reports: As per HPI. Denies: Abnormal menses, Discharge, Dyspareunia, Dysuria, Frequency, Hematuria, Incontinence, Retention, Urgency Musculoskeletal: Reports: As per HPI. Denies: Arthralgia, Back pain, Gout, Joint swelling, Myalgia, Neck pain Skin: Reports: As per HPI. Denies: Bruising, Change in color, Change in hair/nails, Lesions, Pruritus, Rash Neurological: Reports: As per HPI. Denies: Abnormal gait, Confusion, Headache, Numbness, Paresthesias, Seizure, Tingling, Tremors, Vertigo, Weakness Psychiatric: Reports: As per HPI. Denies: Anxiety, Auditory hallucinations, Depression, Homicidal thoughts, Suicidal thoughts, Visual hallucinations Hematological/Lymphatic: Reports: As per HPI. Denies: Anemia, Blood Clots, Easy bleeding, Easy bruising, Swollen glands Past Medical History - SOCIAL HISTORY Smoking Status: Former smoker Alcohol Use: None Drug Use: None - RESPIRATORY Hx Respiratory Disorders: No - CARDIOVASCULAR Hx Cardio Disorders: Yes Hx CHF: Yes Hx Edema: Yes Hx Heart Attack: No Hx Hypertension: Yes Hx Irregular Heartbeat: Yes Hx Palpitations: Yes Comment:: high cholesterol - NEURO Hx Neuro Disorders: Yes Hx Dizziness: Yes (At night) - GI Hx GI Disorders: Yes Hx Diverticulitis: Yes Hx Hiatal Hernia: Yes Comment:: No problems with indigestion. - Hx Genitourinary Disorders: Yes - ENDOCRINE Hx Endocrine Disorders: No - MUSCULOSKELETAL Hx Musculoskeletal Disorders: Yes Hx Arthritis: Yes Hx Osteoporosis: Yes - PSYCH Hx Psych Problems: No - HEMATOLOGY/ONCOLOGY Hx Hematology/Oncology Disorders: Yes Hx Cancer: Yes (benign lumpectomy) Hx Chemotherapy: No Hx Radiation Therapy: No Hx Blood Transfusions: Yes Family Medical History Any Significant Family History?: Yes Hx Heart Disease: Father, Brother/Sister *Heart Comment: hx of VA's Physical Exam - General General Appearance: Alert, Oriented x3, Cooperative, No acute distress - Head Head exam: Normal inspection - Eye Eye exam: Normal appearance, PERRL Pupils: Normal accommodation - ENT ENT exam: Normal exam, Mucous membranes moist, Normal external ear exam, Normal orophraynx, TM's normal bilaterally Ear exam: Normal external inspection. negative: External canal tenderness Nasal Exam: Normal inspection. negative: Discharge, Sinus tenderness Mouth exam: Normal external inspection, Tongue normal Teeth exam: Normal inspection. negative: Dental caries Throat exam: Normal inspection. negative: Tonsillar erythema, Tonsillar exudate - Neck Neck exam: Normal inspection, Full ROM. negative: Tenderness - Respiratory Respiratory exam: Normal lung sounds bilaterally. negative: Respiratory distress - Cardiovascular Cardiovascular Exam: Regular rate, Normal rhythm, Normal heart sounds - GI/Abdominal GI/Abdominal exam: Soft, Normal bowel sounds. negative: Tenderness - Rectal Rectal exam: Deferred - exam: Deferred - Extremities Extremities exam: Normal inspection, Full ROM, Normal capillary refill. negative: Tenderness - Back Back exam: Reports: Normal inspection, Full ROM, Tenderness (lumbar back pain). Denies: Muscle spasm, Rash noted - Neurological Neurological exam: Alert, Normal gait, Oriented X3, Reflexes normal - Psychiatric Psychiatric exam: Normal affect, Normal mood - Skin Skin exam: Dry, Intact, Normal color, Warm Course Vital Signs 01/17/19 09:07 Temperature 98.0 F Pulse Rate 67 Respiratory 20 Rate Blood Pressure 139/67 Pulse Ox 99 - Reevaluation(s) Reevaluation #1: 01/17/19 14:18 discussed case with [facility] Reevaluation #2: Discussed case with Lola Man social science research assistant(neurosurgy) and Dr. Huang (emergency Physician) and will transfer to [facility] ED 01/17/19 14:31 Medical Decision Making - Data Complexity MDM Data: Labs Ordered and/or Reviewed, X-Ray Ordered and/or Reviewed (CT scan of the lumbar spine with maderate central canal stenosis and also at L3) - Lab Data Result diagrams: 01/17/19 09:20 01/17/19 09:20 Disposition Clinical Impression: Back pain Qualifiers: Back pain location: low back pain Chronicity: acute Back pain laterality: bilateral Sciatica presence: without sciatica Qualified Code(s): M54.5 - Low back pain Spinal stenosis Qualifiers: Spinal region: lumbar Neurogenic claudication status: with neurogenic claudication Qualified Code(s): M48.062 - Spinal stenosis, lumbar region with neurogenic claudication Disposition: Acute Care Hospital Transfer Condition: (2) Stable Forms: Patient Portal Access Time of Disposition: 14:34 Quality - Quality Measures Quality Measures: N/A - Blood Pressure Screening Does Patient Have Any of the Following: No Blood Pressure Classification: Pre-Hypertensive BP Reading Systolic Measurement: 139 Diastolic Measurement: 67 Screening for High Blood Pressure: < Pre-Hypertensive BP, F/U Documented > [G8950] Pre-Hypertensive Follow-up Interventions: Referral to alternative/primary care [facility].
[2019-01-17] MEDS ORDERED: 0.9 % SODIUM CHLORIDE 1000ML 1,000 ML IV ONE (09:40)
[2019-01-17 09:44] LABS: BASO % 0.2 % (0-6); EOS % 1.5 % (0-6); HEMATOCRIT 39.6 % (35.0-47.0); HEMOGLOBIN 13.2 gm/dl (11.6-16.0); LYMPH % 23.8 % (16-45); MEAN CELL VOLUME 89.2 fl (81-97); MEAN CORPUSCULAR HEMOGLOBIN 29.7 pg (27-33); MEAN CORPUSCULAR HGB CONC 33.3 g/dl (32-36); MEAN PLATELET VOLUME 9.6 fl (7.4-10.4); MONO % 6.5 % (0-9); PLATELET COUNT 284 K/uL (130-400); RED BLOOD COUNT 4.44 M/uL (3.80-5.40); RED CELL DISTRIBUTION WIDTH 14.2 % (11.5-14.5); WHITE BLOOD COUNT W/O DIFF 6.5 K/uL (4.2-12.2)
[2019-01-17 10:04] LABS: ALBUMIN 4.3 g/dL (4.0-5.0); CREATININE 1.4 mg/dL (0.5-0.9)
[2019-01-17 10:05] LABS: ALB/GLOB RATIO 1.5 (1.1-1.8); BILIRUBIN,TOTAL 0.3 mg/dL (0.2-1.0); TOTAL PROTEIN 7.1 g/dL (6.6-8.7)
[2019-01-17 11:17] LABS: URINE APPEARANCE CLEAR; URINE BILIRUBIN NEGATIVE (NEGATIVE); URINE BLOOD NEGATIVE (NEGATIVE); URINE COLOR YELLOW; URINE GLUCOSE (UA) NEGATIVE (NEGATIVE); URINE KETONE NEGATIVE (NEGATIVE); URINE LEUKOCYTE ESTERASE NEGATIVE (NEGATIVE); URINE NITRITE NEGATIVE (NEGATIVE); URINE PROTEIN NEGATIVE (NEGATIVE); URINE UROBILINOGEN 0.2 E.U./dL (0.20 - 1.00)
--- NOTE | 2019-01-19 08:29 | RADIOLOGY REPORT ---
STUDY: Lumbar spine. CLINICAL HISTORY: Low back pain. Recent L2 injury. TECHNIQUE: AP, lateral, and lateral spot views of the lumbar spine were obtained. COMPARISON: 01/09/2019 FINDINGS: There are 5 lumbar vertebral segments. There is severe chronic anterior compression of the L3 vertebral body which is unchanged. There is moderate compression of the L2 vertebral body which has progressed when compared to the prior study. This now measures 2.2 cm in height centrally. This previously measures 2.5 cm in height. There is likely very slight retropulsion of the posterosuperior margin with no gross central canal stenosis apparent. The remaining vertebral body heights are maintained. Disc space narrowing and endplate degenerative changes are present at the L4-5 level. The bones are diffusely osteopenic. IMPRESSION: 1. Moderate compression of the L2 vertebral body which has mildly progressed when compared to the previous examination. 2. Stable severe compression deformity of the L3 vertebral body. MTDD
--- NOTE | 2019-01-19 08:29 | RADIOLOGY REPORT ---
STUDY: Complete pelvis. CLINICAL HISTORY: Low back pain and pelvic pain. TECHNIQUE: Three views of the pelvis were obtained. COMPARISON: 03/14/2018 FINDINGS: The bones are diffusely osteopenic but appear intact. There is no visible acute fracture, dislocation, or destructive process. degenerative changes are partially visualized within the lower lumbar spine. There are mild arthritic changes within the SI joints. IMPRESSION: 1. No acute pelvic pathology. 2. Diffuse osteopenia and mild arthritic changes. MTDD
--- NOTE | 2019-01-19 08:30 | RADIOLOGY REPORT ---
STUDY: Two view chest. CLINICAL HISTORY: Back pain. TECHNIQUE: AP and lateral upright views of the chest were obtained. COMPARISON: Previous thoracic spine x-rays dated 03/14/2018. FINDINGS: The heart is mildly enlarged. A loop recorder device is present. There is a large hiatal hernia. This appears similar to the previous examination. There is mild calcification of the aorta. The mediastinum and pulmonary vasculature are normal. There is chronic atelectasis with scarring at the left lung base which appears similar to the prior study. A stable calcified granuloma is present within the left upper lobe. There are mild chronic-appearing interstitial changes within both lungs. There are no visible acute infiltrates or effusions. The lungs are hyperinflated. There is chronic compression at a single upper thoracic vertebral body which appears similar to a previous exam. No acute fractures or identified. IMPRESSION: 1. No acute intrathoracic pathology. 2. Large hiatal hernia with chronic atelectasis or scarring at the left lung base. 3. Chronic-appearing interstitial changes and COPD. 4. Chronic compression deformity within the upper thoracic spine. [facility]
--- NOTE | 2019-01-21 15:31 | CT SCAN REPORT ---
DATE: 01/17/2019 at 1147. EXAM: CT OF THE LUMBAR SPINE WITHOUT CONTRAST. HISTORY: LOW BACK PAIN. WORSENING COMPRESSION OF L2 VERTEBRAL BODY. TECHNIQUE: Thin-collimation helical CT examination of the lumbar spine is performed without intravenous contrast. Coronal and sagittal reformatted images are generated and reviewed. COMPARISON: Radiographic examinations of the lumbar spine dated 01/17/2019 and 01/09/2019. FINDINGS: Diffuse osteopenia mildly limits evaluation. There are five [id number] lumbar type vertebrae. There is severe chronic compression deformity involving the superior endplate of L3 redemonstrated. The central height of L3 is 4.0 mm, while the central height of L4 is 23 mm. There is associated retropulsion of bone causing narrowing of the spinal canal by approximately 40 to 50%. There is central canal stenosis with the AP diameter in the midline measuring 6.7 mm. This retropulsion also causes mild narrowing of the lateral recesses of L3. Additionally there is subacute superior endplate compression fracture of L2 most pronounced centrally. The central height measures 11 mm, while the central height of L1 measures 20 mm. This fracture appears subacute. There is associated retropulsion of bone narrowing the spinal canal by approximately 40%. There is mild central canal stenosis. The retropulsed bone does mildly narrow the lateral recesses of L2, left greater than right. No other acute fracture. There is straightening of the normal lumbar lordosis, and there is redemonstration of mild levoconvex curvature centered at the L4-L5 level. The vertebral bodies are otherwise normal in alignment and height. No gross disc abnormality nor central canal stenosis at the T10-11, T11-T12, nor T12-L1 levels. The neural foramina at these levels are patent. L1-L2: There is broad-based posterior disc bulging and, as above, there is retropulsion of the posterosuperior aspect of L2 causing mild central canal stenosis and lateral recess narrowing, left greater than right. Mild bilateral neural foraminal narrowing is suspected due to facet arthropathy. L2-L3: There is posterior disc bulging and an association with chronic retropulsion of the posterosuperior aspect of L3, and ligamentum flavum buckling causes moderate central canal stenosis with the AP diameter measuring approximately 6.7 mm. There is associated narrowing of the lateral recesses. Mild right and mild to moderate left neural foraminal narrowing present due to lateral disc bulging and facet arthropathy. L3-L4: There is broad-based posterior disc bulging and an association with ligamentum flavum buckling, and facet arthropathy causes moderate central canal stenosis. There is lateral recess narrowing due to the degenerative changes. Mild bilateral neural foraminal narrowing is suspected due to lateral disc bulging and facet arthropathy. L4-L5: Posterior disc bulging and endplate spurring causes ventral sac flattening but without central canal stenosis. Mild left and moderate right neural foraminal narrowing is present due to lateral disc bulging, endplate spurring, and facet arthropathy. L5-S1: Posterior disc bulging without central canal stenosis. The neural foramina are grossly patent. Mild facet arthropathy. There is diverticulosis of the visualized sigmoid colon. No diverticulitis. A very large hiatal hernia is present with the hernia sac containing both stomach and a portion of the transverse colon. IMPRESSION: 1. MODERATE SUBACUTE COMPRESSION FRACTURE OF L2 WITH RETROPULSION OF BONE CAUSING NARROWING OF THE SPINAL CANAL BY APPROXIMATELY 40%. THERE IS MILD CENTRAL CANAL STENOSIS AT THIS LEVEL. 2. CHRONIC, SEVERE COMPRESSION OF L3 WITH RETROPULSION OF BONE COMBINING WITH DISC BULGING AND POSTERIOR ELEMENT CHANGES TO CAUSE MODERATE CENTRAL CANAL STENOSIS. THERE IS LATERAL RECESS NARROWING AT THE L1-L2 AND L2-3 LEVELS. 3. MODERATE CENTRAL CANAL STENOSIS AT THE L3-L4 LEVEL DUE TO DISC BULGING, LIGAMENTUM FLAVUM BUCKLING, AND FACET ARTHROPATHY. LATERAL RECESS NARROWING IS ALSO NOTED AT THIS LEVEL. 4. MULTILEVEL BILATERAL NEURAL FORAMINAL NARROWING OF VARYING DEGREES. 5. CHRONIC FINDINGS DISCUSSED ABOVE. Job Number: [id number] [facility]
== END 2019-01-17 15:41 | disposition short-term general hospital (02) ==
LOC: ER 09:02
DX: M48.02 Spinal stenosis, cervical region (principal); M54.5 Low back pain; R26.2 Difficulty in walking, not elsewhere classified; M48.56XA Collapsed vertebra, not elsewhere classified, lumbar region, initial encounter for fracture; I10 Essential (primary) hypertension; I50.9 Heart failure, unspecified; Z87.891 Personal history of nicotine dependence
CPT/HCPCS: 71046; 72100; 72131; 72190; 80053; 81003; 85025; 99285